=== PATIENT | female | born 1980 | race American Indian/Alaskan Native ===

== ENCOUNTER 2018-01-13 11:00 | Emergency (ER) | payer SELFPAY ==
--- NOTE | 2018-01-13 13:16 | Emergency Department Report ---
ED Female HPI - General Chief complaint: Vaginal Bleeding Stated complaint: VAGINAL BLEEDING/6WKS PREG Time Seen by Provider: 01/13/18 13:06 Source: patient Mode of arrival: Ambulatory Limitations: No Limitations - History of Present Illness Initial comments: 37-year-old female ( currently , one in the past ) past medical history asthma presents with complaint of 5-6 days of crampy pain and increased vaginal bleeding heavier than usual period. Patient states that she took a home test a few weeks ago which indicated she was . Patient denies fevers chills nausea or vomiting. Patient is awake alert and oriented 3 not in acute distress. Does not know her blood type. Denies dysuria or hematuria or increased urinary frequency. States she may have had some vaginal discharge. MD Complaint: vaginal bleeding Onset/Timin -: days(s) Severity: mild Quality: cramping Are you Now?: Yes Last Menstrual Period: 11/26/17 EDC: 09/02/18 Associated Symptoms: vaginal bleeding - Related Data Sexually active: Yes : 2 Para: 0 A: 1 Allergies Allergy/AdvReac Type Severity Reaction Status Date / Time No Known Allergies Allergy Unverified 01/13/18 11:31 ED Review of Systems ROS: Stated complaint: VAGINAL BLEEDING/6WKS PREG Other details as noted in HPI Constitutional: denies: chills, fever Eyes: denies: eye pain, eye discharge, vision change ENT: denies: ear pain, throat pain Respiratory: denies: cough, shortness of breath, wheezing Cardiovascular: denies: chest pain, palpitations Endocrine: no symptoms reported Gastrointestinal: denies: abdominal pain, nausea, diarrhea Genitourinary: abnormal menses. denies: urgency, dysuria, discharge Musculoskeletal: denies: back pain, joint swelling, arthralgia Skin: denies: rash, lesions Neurological: denies: headache, weakness, paresthesias Psychiatric: denies: anxiety, depression Hematological/Lymphatic: denies: easy bleeding, easy bruising ED Past Medical Hx - Past Medical History Hx Asthma: Yes - Surgical History Past Surgical History?: No - Social History Smoking Status: Never Smoker Substance Use Type: Alcohol ED Physical Exam - General Limitations: No Limitations General appearance: alert, in no apparent distress - Head Head exam: Present: atraumatic, normocephalic - Eye Eye exam: Present: normal appearance, PERRL, EOMI - ENT ENT exam: Present: mucous membranes moist - Neck Neck exam: Present: normal inspection - Respiratory Respiratory exam: Present: normal lung sounds bilaterally. Absent: respiratory distress - Cardiovascular Cardiovascular Exam: Present: regular rate, normal rhythm. Absent: systolic murmur, diastolic murmur, rubs, gallop - GI/Abdominal GI/Abdominal exam: Present: soft, normal bowel sounds - External exam: Present: normal external exam Speculum exam: Present: normal speculum exam, vaginal bleeding Bi-manual exam: Present: normal bi-manual exam - Extremities Exam Extremities exam: Present: normal inspection - Back Exam Back exam: Present: normal inspection - Neurological Exam Neurological exam: Present: alert, oriented X3, CN II-XII intact, normal gait - Psychiatric Psychiatric exam: Present: normal affect, normal mood - Skin Skin exam: Present: warm, dry, intact, normal color. Absent: rash ED Course Vital Signs 01/13/18 01/13/18 11:31 16:29 Temperature 99 F 98.6 F Pulse Rate 97 H 96 H Respiratory 16 16 Rate Blood Pressure 117/71 Blood Pressure 120/78 [Left] O2 Sat by Pulse 100 Oximetry ED Medical Decision Making - Lab Data Result diagrams: 01/13/18 13:16 01/13/18 13:16 - Medical Decision Making a/p: , vaginal bleeding, spontaneous miscarriage versus early ectopic 1- case discussed with Dr. Veronica before discharge. 2- patient advised to return to the ED in 48-72 hours for serial hCG and possible ultrasound. I advised patient to follow up with outpatient RAIL CAR REPAIRER. I also advised patient to return to the ED immediately for any fevers and chills and inability to tolerate by mouth with increased sharp lower abdominal pain. I gave patient ectopic precautions. Patient stated she understood what symptoms to be concerned for and will return if she develops these. 3- wet prep unremarkable, urinalysis unremarkable. Patient's blood type is O+. 4- vital signs stable for discharge. Critical care attestation.: If time is entered above; I have spent that time in minutes in the direct care of this critically ill patient, excluding procedure time. ED Disposition Clinical Impression: Vaginal bleeding during Disposition: DC-01 TO HOME OR SELFCARE Is pt being admited?: No Does the pt Need Aspirin: No Condition: Stable Instructions: Ectopic (ED), Spontaneous Miscarriage (ED), Threatened Miscarriage (ED) Additional Instructions: I advised patient to return to the ED in 48-72 hours for repeat hCG level if she cannot follow-up as an outpatient. I advised her to make outpatient RAIL CAR REPAIRER follow-up appointment and referred her to outpatient clinics. Referrals: [facility] [Provider Group] - 3-5 Days [facility] [Provider Group] - 3-5 Days Forms: Accompanied Note, Work/School Release Form(ED) Time of Disposition: 16:17
[2018-01-13 13:28] LABS: Basophils % (Auto) 0.4 % (0.0-1.8); Eosinophils # (Auto) 0.5 K/mm3 (0.0-0.4); Eosinophils % (Auto) 7.1 % (0.0-4.3); Hematocrit 41.9 % (30.3-42.9); Hemoglobin 13.4 gm/dl (10.1-14.3); Lymphocytes # (Auto) 2.2 K/mm3 (1.2-5.4); Lymphocytes % (Auto) 32.7 % (13.4-35.0); Mean Corpuscular HGB Conc 32 % (30-34); Mean Corpuscular Hemoglobin 31 pg (28-32); Mean Corpuscular Volume 96 fl (79-97); Monocytes # (Auto) 0.6 K/mm3 (0.0-0.8); Monocytes % (Auto) 9.2 % (0.0-7.3); Platelet Count 311 K/mm3 (140-440); Red Blood Count 4.36 M/mm3 (3.65-5.03); Red Cell Distribution Width 13.3 % (13.2-15.2)
[2018-01-13 13:39] LABS: BUN/Creatinine Ratio 18; Blood Urea Nitrogen 11 mg/dL (7-17); Hemolysis Index 2
[2018-01-13 14:02] LABS: Bacteria,Urine 1+ /HPF (Negative); Bilirubin,Urine NEG (Negative); Blood,Urine SM (Negative); Color,Urine Yellow (Yellow); Mucus,Urine FEW /HPF; Protein,Urine <15 mg/dL mg/dL (Negative); Urobilinogen,Urine < 2.0 mg/dL (<2.0)
--- NOTE | 2018-01-13 15:41 | Ultrasound Report ---
ULTRASOUND OB LESS THAN 14 WEEKS FETUS ULTRASOUND OB TRANSVAGINAL HISTORY: Cramping, vaginal bleeding, beta hCG level 400. COMPARISON: None. TECHNIQUE: Transabdominal and transvaginal ultrasound with color doppler interrogation. FINDINGS: Uterus: 6 x 3 x 4 cm. No uterine mass is identified. Normal cervix. Endometrium: No intrauterine is visualized. The endometrial stripe measures 8 mm. Right ovary: 3.7 x 2.0 x 4.2 cm. No focal lesion is identified. Left ovary: 2.6 x 1.5 x 2.5 cm. No focal lesion is identified. No pelvic fluid or mass is identified. Normal color doppler interrogation. IMPRESSION: No intrauterine is detected at this time. This could represent a spontaneous . Please note that an ectopic is not entirely excluded at this time.
[2018-01-13 16:30] VITALS: BP 120/78
== END 2018-01-13 16:30 | disposition home or self-care (01) ==
LOC: ED 11:00
DX: O20.9 Hemorrhage in early pregnancy, unspecified (principal); O99.511 Diseases of the respiratory system complicating pregnancy, first trimester; J45.909 Unspecified asthma, uncomplicated; Z3A.01 Less than 8 weeks gestation of pregnancy; Z91.040 Latex allergy status
CPT/HCPCS: 36415; 76801; 76817; 76830; 80048; 81001; 84702; 85025; 86900; 86901; 87086; 87210; 87591

== ENCOUNTER 2018-01-14 22:11 | Emergency (ER) | payer SELFPAY ==
[2018-01-14 22:54] VITALS: BP 114/72
[2018-01-14 23:21] LABS: Basophils # (Auto) 0.1 K/mm3 (0.0-0.1); Basophils % (Auto) 0.8 % (0.0-1.8); Eosinophils # (Auto) 0.6 K/mm3 (0.0-0.4); Eosinophils % (Auto) 8.7 % (0.0-4.3); Hematocrit 41.7 % (30.3-42.9); Hemoglobin 13.4 gm/dl (10.1-14.3); Lymphocytes # (Auto) 2.7 K/mm3 (1.2-5.4); Lymphocytes % (Auto) 39.5 % (13.4-35.0); Mean Corpuscular HGB Conc 32 % (30-34); Mean Corpuscular Hemoglobin 31 pg (28-32); Mean Corpuscular Volume 97 fl (79-97); Monocytes # (Auto) 0.6 K/mm3 (0.0-0.8); Monocytes % (Auto) 8.6 % (0.0-7.3); Platelet Count 303 K/mm3 (140-440); Red Blood Count 4.32 M/mm3 (3.65-5.03); Red Cell Distribution Width 13.3 % (13.2-15.2)
[2018-01-15 01:30] LABS: Bilirubin,Urine NEG (Negative); Blood,Urine LG (Negative); Calcium Oxalate Crystals,Urine 2+; Color,Urine Yellow (Yellow); Mucus,Urine FEW /HPF; Urobilinogen,Urine < 2.0 mg/dL (<2.0)
--- NOTE | 2018-01-16 14:50 | ED Elopement Review ---
ED Pt Elopement review - Results review Lab results: Laboratory Tests 01/14/18 01/14/18 01/14/18 23:00 23:00 23:00 WBC 6.7 RBC 4.32 Hgb 13.4 Hct 41.7 MCV 97 MCH 31 MCHC 32 RDW 13.3 Plt Count 303 Lymph % (Auto) 39.5 H Custer % (Auto) 8.6 H Eos % (Auto) 8.7 H Baso % (Auto) 0.8 Lymph # 2.7 Custer # 0.6 Eos # 0.6 H Baso # 0.1 Seg Neutrophils % 42.4 Seg Neutrophils # 2.8 HCG, Qual Positive HCG, Quant 498.3 H Urine Color Urine Turbidity Urine pH Ur Specific [place] Urine Protein Urine Glucose (UA) Urine Ketones Urine Blood Urine Nitrite Urine Bilirubin Urine Urobilinogen Ur Leukocyte Esterase Urine WBC (Auto) Urine RBC (Auto) U Epithel Cells (Auto) Calcium Oxalate Crystal Urine Mucus Blood Type Antibody Screen 01/14/18 01/15/18 23:01 00:30 WBC RBC Hgb Hct MCV MCH MCHC RDW Plt Count Lymph % (Auto) Custer % (Auto) Eos % (Auto) Baso % (Auto) Lymph # Custer # Eos # Baso # Seg Neutrophils % Seg Neutrophils # HCG, Qual HCG, Quant Urine Color Yellow Urine Turbidity Clear Urine pH 6.0 Ur Specific [place] 1.028 Urine Protein 30 mg/dl Urine Glucose (UA) Neg Urine Ketones Neg Urine Blood Lg Urine Nitrite Neg Urine Bilirubin Neg Urine Urobilinogen < 2.0 Ur Leukocyte Esterase Sm Urine WBC (Auto) 11.0 H Urine RBC (Auto) 36.0 U Epithel Cells (Auto) 5.0 Calcium Oxalate Crystal 2+ Urine Mucus Few Blood Type O POSITIVE Antibody Screen Negative - Call Back decision Pt Call Back Decision: Call pt to return to ED [facility] (needs to follow up either in the ER or with her cell room operator.)
== END 2018-01-15 03:15 | disposition left against medical advice (07) ==
LOC: ED 22:11
DX: N93.9 Abnormal uterine and vaginal bleeding, unspecified (principal); Z53.21 Procedure and treatment not carried out due to patient leaving prior to being seen by health care provider
CPT/HCPCS: 36415; 81001; 84702; 84703; 85025; 86850; 86900; 86901

== ENCOUNTER 2018-01-30 13:08 | Emergency (ER) | payer OTHER ==
[2018-01-30 15:41] LABS: Bacteria,Urine 2+ /HPF (Negative); Bilirubin,Urine NEG (Negative); Blood,Urine LG (Negative); Color,Urine Yellow (Yellow); Mucus,Urine FEW /HPF; Protein,Urine <15 mg/dL mg/dL (Negative); Urobilinogen,Urine < 2.0 mg/dL (<2.0)
--- NOTE | 2018-01-30 15:53 | Emergency Department Report ---
[facility]erna Doc - Documentation Documentation: 37-year-old female with a past medical history of asthma presents to the hospital for continued vaginal bleeding and suprapubic cramps during . LMP was 11/26/2017. Patient was here it was had ultrasound showing no IUP and a HCG quadrant of 400. She had labs drawn here on 01/14 showing a hcg of 498. She had a third hCG drawn 01/21 outside clinic with hCG of 542. Patient has not followed up with CAN PATCHER as of yet due to lack of insurance. Bleeding Started January 13, stopped 4 days ago and restarted today. 04/25 suprapubic crampy abd pain reported. Patient declined offer for Tylenol Pending lab draw hCG Quant and WBC Blood type on O+ mid level to see
[2018-01-30 18:14] LABS: Basophils % (Auto) 0.6 % (0.0-1.8); Eosinophils # (Auto) 0.6 K/mm3 (0.0-0.4); Eosinophils % (Auto) 9.4 % (0.0-4.3); Hematocrit 42.1 % (30.3-42.9); Hemoglobin 14.4 gm/dl (10.1-14.3); Lymphocytes # (Auto) 2.8 K/mm3 (1.2-5.4); Lymphocytes % (Auto) 41.8 % (13.4-35.0); Mean Corpuscular HGB Conc 34 % (30-34); Mean Corpuscular Hemoglobin 32 pg (28-32); Mean Corpuscular Volume 95 fl (79-97); Monocytes # (Auto) 0.5 K/mm3 (0.0-0.8); Monocytes % (Auto) 7.8 % (0.0-7.3); Platelet Count 307 K/mm3 (140-440); Red Blood Count 4.45 M/mm3 (3.65-5.03); Red Cell Distribution Width 13.4 % (13.2-15.2)
--- NOTE | 2018-01-30 20:30 | Emergency Department Report ---
ED Female HPI - General Chief complaint: Vaginal Bleeding Stated complaint: POSSIBLE ECTOPIC Time Seen by Provider: 01/30/18 15:09 Source: patient Mode of arrival: Ambulatory Limitations: No Limitations - History of Present Illness Initial comments: 37-year-old female with a past medical history of asthma presents to the hospital for continued vaginal bleeding and suprapubic cramps during . LMP was 11/26/2017. Patient was here it was 30th had ultrasound showing no IUP and a HCG quadrant of 400. She had labs drawn here on 01/14 showing a hcg of 498. She had a third hCG drawn 01/21 outside clinic with hCG of 542. Patient has not followed up with PROJECT MANAGEMENT PROFESSOR as of yet due to lack of insurance. Bleeding Started January 13, stopped 4 days ago and restarted today. 04/25 suprapubic crampy abd pain reported. Patient declined offer for Tylenol - Related Data Allergies Allergy/AdvReac Type Severity Reaction Status Date / Time latex Allergy Hives Verified 01/14/18 22:46 ED Review of Systems ROS: Stated complaint: POSSIBLE ECTOPIC Other details as noted in HPI Constitutional: denies: chills, fever Eyes: denies: eye pain, eye discharge, vision change ENT: denies: ear pain, throat pain Respiratory: denies: cough, shortness of breath, wheezing Cardiovascular: denies: chest pain, palpitations Endocrine: no symptoms reported Gastrointestinal: denies: abdominal pain, nausea, diarrhea Genitourinary: denies: urgency, dysuria, discharge Musculoskeletal: denies: back pain, joint swelling, arthralgia Skin: denies: rash, lesions Neurological: denies: headache, weakness, paresthesias Psychiatric: denies: anxiety, depression Hematological/Lymphatic: denies: easy bleeding, easy bruising ED Past Medical Hx - Past Medical History Previous Medical History?: Yes Hx Asthma: Yes - Surgical History Past Surgical History?: No - Social History Smoking Status: Never Smoker Substance Use Type: Alcohol ED Physical Exam - General Limitations: No Limitations General appearance: alert, in no apparent distress - Head Head exam: Present: atraumatic, normocephalic - Eye Eye exam: Present: normal appearance - ENT ENT exam: Present: mucous membranes moist - Neck Neck exam: Present: normal inspection - Respiratory Respiratory exam: Present: normal lung sounds bilaterally. Absent: respiratory distress - Cardiovascular Cardiovascular Exam: Present: regular rate, normal rhythm. Absent: systolic murmur, diastolic murmur, rubs, gallop - GI/Abdominal GI/Abdominal exam: Present: soft, normal bowel sounds - Extremities Exam Extremities exam: Present: normal inspection - Back Exam Back exam: Present: normal inspection - Neurological Exam Neurological exam: Present: alert, oriented X3 - Psychiatric Psychiatric exam: Present: normal affect, normal mood - Skin Skin exam: Present: warm, dry, intact, normal color. Absent: rash ED Course Vital Signs 01/30/18 13:10 Temperature 98.5 F Pulse Rate 93 H Respiratory 18 Rate Blood Pressure 125/76 O2 Sat by Pulse 99 Oximetry - Reevaluation(s) Reevaluation #1: Reassessed patient patient. She is stable, she is in no discomfort. She is sitting in steadily ED bed. 01/30/18 21:12 - Consultations Consultation #1: PROJECT MANAGEMENT PROFESSOR construction cost estimator was paged. I spoke to Dr. Thom Okeefe's partner and discussed patient with provider. Ultrasound pending. We will call back when ultrasound results. 01/30/18 20:37 01/30/18 21:[address] Tomas the PROJECT MANAGEMENT PROFESSOR construction cost estimator who states will see patient at 9:30 AM tomorrow in the office. She is stable and can go home to follow-up in the morning. ED Medical Decision Making - Lab Data Result diagrams: 01/30/18 17:58 - Radiology Data Radiology results: report reviewed, image reviewed FINAL REPORT PROCEDURE: US OB lt; = 14 WEEKS FETUS TECHNIQUE: Real-time transabdominal sonography of the uterus, placenta, amniotic fluid, adnexa, and fetus was performed with image documentation. Measurements were obtained to determine age/size. M-mode Doppler was used to document heartbeat. CPT 70866 HISTORY: PELVIC PAIN/VAG BLEED. Positive test COMPARISON: Transvaginal OB ultrasound also performed today. FINDINGS: Images from both transabdominal and transvaginal OB ultrasound both of which were performed today were utilized to generate this report. The uterus is anteverted measuring 6.3 x 3.3 x 3.1 centimeter. No uterine masses are identified. The endometrial stripe measures 3.1 millimeter in thickness. No fluid is seen in the endometrial canal. No evidence of intrauterine . No free fluid is seen in the cul-de-sac. Small nabothian cyst is visualized. The left ovary is unremarkable measuring 3.0 x 1.9 x 2.4 centimeter. The right ovary measures 3.8 x 1.9 x 3.2 centimeter. Heterogeneous mixed echogenic nodule is seen projecting from are directly adjacent to the right ovary measuring 2.5 centimeters greatest diameter. With color Doppler imaging I do not see significant increased flow in the direction of this nodule. IMPRESSION: There is no evidence of intrauterine . Small nabothian cyst is visualized. Uterus otherwise appears normal. Mild heterogeneous complex echogenic nodule projecting from ridge AC to the right ovary as described. Given the positive test I cannot exclude ectopic however I do not see significant increased flow to this nodule with Doppler imaging. Corpus luteum cyst of could present this manner. Small hemorrhagic cyst could also present in this manner. Recommend following serial beta HCG levels and follow-up pelvic ultrasound if clinically indicated. Ectopic at this time cannot be entirely excluded. Transcribed By: DANIELLE Dictated By: CALVIN RITCHIE MD Electronically Authenticated By: CALVIN RITCHIE MD Signed Date/Time: 01/30/182114 - Medical Decision Making 37-year-old female presents possible corpus luteum cyst ED course: Quantitative that was repeated today was elevated and that abated and was 777. I discuss with the patient in this is a slow progression of quant levels for normal . I discussed the patient she will need to follow-up with PROJECT MANAGEMENT PROFESSOR as soon as possible. I discussed ectopic with the patient until early cannot rule this out. I discussed with the patient she has any heavier bleeding, pelvic cramping worsening to return to ED immediately. Patient was given PROJECT MANAGEMENT PROFESSOR referral for Dr. Tomas's office and told to follow- up in the morning. Dr. Tomas will see patient in office tomorrow to discuss options. Ultrasound report shows results above. Stable, she is in no acute or respiratory distress. Patient understands all instructions. And states she will reports that Dr. Tomas's office in the morning. Critical care attestation.: If time is entered above; I have spent that time in minutes in the direct care of this critically ill patient, excluding procedure time. ED Disposition Clinical Impression: Retained corpus luteum, Nabothian cyst Disposition: DC- TO HOME OR SELFCARE Is pt being admited?: No Does the pt Need Aspirin: No Condition: Stable Instructions: Ectopic (ED), Spontaneous Miscarriage (ED) Additional Instructions: Make sure to follow up with Dr. Tomas at 9:30 AM tomorrow morning as discussed. If you have any worsening symptoms or develop new symptoms please return to ED immediately. Referrals: PRIMARY CARE, [Primary Care Provider] - 3-5 Days BAIRON TOMAS MD [Staff Physician] - 3-5 Days Forms: Work/School Release Form(ED) Time of Disposition: 21:47
--- NOTE | 2018-01-30 21:20 | Ultrasound Report ---
FINAL REPORT PROCEDURE: US OB < = 14 WEEKS FETUS TECHNIQUE: Real-time transabdominal sonography of the uterus, placenta, amniotic fluid, adnexa, and fetus was performed with image documentation. Measurements were obtained to determine age/size. M-mode Doppler was used to document heartbeat. CPT 74718 HISTORY: PELVIC PAIN/VAG BLEED. Positive test COMPARISON: Transvaginal OB ultrasound also performed today. FINDINGS: Images from both transabdominal and transvaginal OB ultrasound both of which were performed today were utilized to generate this report. The uterus is anteverted measuring 6.3 x 3.3 x 3.1 centimeter. No uterine masses are identified. The endometrial stripe measures 3.1 millimeter in thickness. No fluid is seen in the endometrial canal. No evidence of intrauterine . No free fluid is seen in the cul-de-sac. Small nabothian cyst is visualized. The left ovary is unremarkable measuring 3.0 x 1.9 x 2.4 centimeter. The right ovary measures 3.8 x 1.9 x 3.2 centimeter. Heterogeneous mixed echogenic nodule is seen projecting from are directly adjacent to the right ovary measuring 2.5 centimeters greatest diameter. With color Doppler imaging I do not see significant increased flow in the direction of this nodule. IMPRESSION: There is no evidence of intrauterine . Small nabothian cyst is visualized. Uterus otherwise appears normal. Mild heterogeneous complex echogenic nodule projecting from ridge AC to the right ovary as described. Given the positive test I cannot exclude ectopic however I do not see significant increased flow to this nodule with Doppler imaging. Corpus luteum cyst of could present this manner. Small hemorrhagic cyst could also present in this manner. Recommend following serial beta HCG levels and follow-up pelvic ultrasound if clinically indicated. Ectopic at this time cannot be entirely excluded.
--- NOTE | 2018-01-30 21:22 | Ultrasound Report ---
FINAL REPORT PROCEDURE: US OB TRANSVAGINAL TECHNIQUE: Real-time transvaginal sonography of the uterus, placenta, amniotic fluid, adnexa, and fetus was performed with image documentation. Measurements were obtained to determine age/size. M-mode Doppler was used to document heartbeat. CPT 29122 HISTORY: PELVIC PAIN/VAG BLEED. Positive test. COMPARISON: Transabdominal OB ultrasound also performed today. FINDINGS: Images from both transabdominal and transvaginal OB ultrasound both of which were performed today were utilized to generate this report. The uterus is anteverted measuring 6.3 x 3.3 x 3.1 centimeter. No uterine masses are identified. The endometrial stripe measures 3.1 millimeter in thickness. No fluid is seen in the endometrial canal. No evidence of intrauterine . No free fluid is seen in the cul-de-sac. Small nabothian cyst is visualized. The left ovary is unremarkable measuring 3.0 x 1.9 x 2.4 centimeter. The right ovary measures 3.8 x 1.9 x 3.2 centimeter. Heterogeneous mixed echogenic nodule is seen projecting from are directly adjacent to the right ovary measuring 2.5 centimeters greatest diameter. With color Doppler imaging I do not see significant increased flow in the direction of this nodule. IMPRESSION: There is no evidence of intrauterine . Small nabothian cyst is visualized. Uterus otherwise appears normal. Mild heterogeneous complex echogenic nodule projecting from ridge AC to the right ovary as described. Given the positive test I cannot exclude ectopic however I do not see significant increased flow to this nodule with Doppler imaging. Corpus luteum cyst of could present this manner. Small hemorrhagic cyst could also present in this manner. Recommend following serial beta HCG levels and follow-up pelvic ultrasound if clinically indicated. Ectopic at this time cannot be entirely excluded.
[2018-01-30 21:57] VITALS: BP 136/76
== END 2018-01-30 21:56 | disposition home or self-care (01) ==
LOC: ED 13:08
DX: N83.11 Corpus luteum cyst of right ovary (principal); N88.8 Other specified noninflammatory disorders of cervix uteri; Z91.040 Latex allergy status
CPT/HCPCS: 36415; 76801; 76817; 81001; 84702; 85025; 99284

== ENCOUNTER 2018-01-31 11:46 | Observation (INO) | payer OTHER ==
[2018-01-31] MEDS ORDERED: METHOTREXATE IM ONE (11:49)
[2018-01-31 14:10] LABS: Albumin 3.7 g/dL (3.9-5); BUN/Creatinine Ratio 18; Blood Urea Nitrogen 11 mg/dL (7-17); Calcium 8.5 mg/dL (8.4-10.2); Hemolysis Index 204
[2018-01-31 14:58] LABS: Alanine Aminotransferase 13 units/L (7-56)
[2018-01-31 17:36] VITALS: BP 97/64
--- NOTE | 2018-01-31 17:56 | Short Stay Summary ---
Short Stay Documentation - Allergies and Medications Current Medications: Allergies latex Allergy (Verified 01/14/18 22:46) Hives Home Medications Medication Instructions Recorded Confirmed Last Taken Type Fluticasone/Salmeterol [Advair 250 inhalation INHALATION BID MDD 2 01/31/1801/30/18 History 250-50 Diskus] 1 Short Stay Discharge Plan Follow up with: PRIMARY CARE, [Primary Care Provider] - 7 Days
--- NOTE | 2018-01-31 18:15 | Discharge Summary ---
Providers - Providers Date of Admission: 01/31/18 12:31 Date of discharge: 01/31/18 Attending physician: BAIRON BENAVIDEZ Primary care physician: CERTIFIED CAREGIVER Hospitalization Reason for admission: other (methotrexate injection) Procedure: other (methotrexte injection) Hospital course: Pt admitted for injection for the ectopic . Pt was monitored for 2 hours and stable so will be d/c home as per criteria. She is to f/u in 4 days for a quant. Condition at discharge: Good Disposition: DC-01 TO HOME OR SELFCARE - Discharge Diagnoses (1) Ectopic Status: Acute Qualifiers: Location of ectopic : tubal Intrauterine status: without intrauterine Laterality: unspecified laterality Qualified Code(s): O00.109 - Unspecified tubal without intrauterine Plan - Provider Discharge Summary Additional instructions: [] Smoking cessation referral if applicable(refer to patient education folder for contact #) [] Refer to [facility] Book[facility] Call your doctor immediately for: * Fever > 100.5 * Heavy vaginal bleeding ( >1 pad per hour) * Severe persistent headache * Shortness of breath * Reddened, hot, painful area to leg or breast * Drainage or odor from incision. * Keep incision clean and dry at all times and follow doctor's instructions regarding bathing/showering - Follow up plan Follow up: PRIMARY CARE, [Primary Care Provider] - 7 Days BAIRON BENAVIDEZ MD [Staff Physician] - 02/04/18
== END 2018-01-31 18:30 | disposition home or self-care (01) ==
LOC: UNDOADMOB 11:46 → 3A 11:46 → OB 12:31
PROVIDERS: ADMIT Obstetrics & Gynecology; ATTEND Obstetrics & Gynecology
DX: O00.90 Unspecified ectopic pregnancy without intrauterine pregnancy (principal)
CPT/HCPCS: 36415; 80053; 96372; G0378; G0379; J9260

== ENCOUNTER 2018-09-24 10:24 | Outpatient (CLI) | payer OTHER ==
--- NOTE | 2018-09-24 13:59 | Mammography Report ---
BILATERAL DIGITAL SCREENING MAMMOGRAM WITH CAD:09/24/18 10:30:00 CLINICAL: Baseline screening. FINDINGS: There are bilateral scattered fibroglandular densities.No mass, architectural distortion or suspicious calcifications. IMPRESSION: No mammographic evidence of malignancy. BI-RADS CATEGORY: 1 -- Negative RECOMMENDATION: Routine mammographic screening in one year. ACR BI-RADS MAMMOGRAPHIC CODES: 0 = Needs additional imaging evaluation; 1 = Negative; 2 = Benign; 3 = Probably benign; 4 = Suspicious; 5 = Malignant; 6 = Known biopsy-proven malignancy COMMENT: 1. Dense breast tissue, i.e., adenosis, fibrocystic changes, etc., may obscure an underlying neoplasm. 2. Approximately 10% of cancers are not detected with mammography. 3. A negative mammography report should not delay biopsy if a clinically suspicious mass is present.
== END 2018-09-24 10:25 | disposition home or self-care (01) ==
LOC: SPVWC 10:24
PROVIDERS: ATTEND Obstetrics & Gynecology
DX: Z12.31 Encounter for screening mammogram for malignant neoplasm of breast (principal); J45.909 Unspecified asthma, uncomplicated
CPT/HCPCS: 77067

== ENCOUNTER 2021-04-24 10:22 | Outpatient (CLI) | payer OTHER ==
[2021-04-24] MEDS ORDERED: BETAMET ACET/BETAMET NA PH 6 MG/ML INJ 5 ML MDV IM SCH (11:00)
[2021-04-24] MEDS ORDERED: LACTATED RINGERS 500 ML IV ONE (12:36)
[2021-04-24 12:51] VITALS: BP 106/60
--- NOTE | 2021-04-24 13:37 | Ultrasound Report ---
ULTRASOUND OBSTETRIC LIMITED INDICATION / CLINICAL INFORMATION: labor, evaluate cervical length. COMPARISON: None available. FINDINGS: A single live intrauterine is seen in cephalic presentation. heart rate measures 127 bpm. Amniotic fluid index is increased and measures 31.0 cm. Cervical length is normal and measures 4.8 cm. The placenta appears to be located anteriorly and free of the cervical os. No acute findings are identified. IMPRESSION: 1. Single live intrauterine without an acute abnormality of the pelvis. 2. Increased amniotic fluid index of 31.0 cm. 3. Normal cervical length of 4.8 cm. Signer Name: Waqas Hatch MD Signed: 04/24/2021 1:32 PM Workstation Name: [id number]
[2021-04-24] MEDS ORDERED: TERBUTALINE 1 MG/1 ML INJ SUB-Q ONE (14:47)
[2021-04-24 15:39] LABS: Bacteria,Urine 1+ /HPF (Negative); Bilirubin,Urine NEG (Negative); Blood,Urine NEG (Negative); Color,Urine Colorless (Yellow); Protein,Urine <15 mg/dL mg/dL (Negative); RBC,Urine < 1.0 /HPF (0.0-6.0); Urobilinogen,Urine < 2.0 mg/dL (<2.0)
[2021-04-24 15:51] LABS: WBC,Urine < 1.0 /HPF (0.0-6.0)
== END 2021-04-24 15:56 | disposition home or self-care (01) ==
LOC: TRG 10:22 → APU 10:24 → TRG 15:56
PROVIDERS: ATTEND Obstetrics & Gynecology
DX: Z34.93 Encounter for supervision of normal pregnancy, unspecified, third trimester (principal); Z3A.32 32 weeks gestation of pregnancy
CPT/HCPCS: 36415; 59025; 76815; 81001; 82731; 96360; 96372; J0702; J7120; 96361